=== PATIENT | male | born 1960 | race Asian ===

== ENCOUNTER 2019-06-11 18:33 | Inpatient (IN) | payer MEDICARE ==
[2019-06-11 20:42] VITALS: BP 142/78
--- NOTE | 2019-06-12 12:25 | History & Physical ---
ADMIT DATE: 06/12/2019 IDENTIFYING INFORMATION: The patient is a 58-year-old male. CHIEF COMPLAINT: The patient was admitted on a 5250 hold for grave disability and danger to others. HISTORY OF PRESENT ILLNESS: The patient was brought to the Emergency Room after a passerby called the police to report that the patient was agitated, threatening passerby with a knife so was brought for further psychiatric evaluation and followup. When we are seeing face to face, he was unable to explain his behavior or provide a logical explanation. He continues to be agitated, erratic, unpredictable. He was threatening passerby without provocation, threatening and assaultive. Client unable to ensure safety of others at this time, hold written for him at that time and that was on 06/07/2019 and the patient is currently on 5250 hold. The patient was heard yelling in the hallway, poorly articulated sentences that were difficult to understand, but loud with obscenity. He was sometimes arguing with staff who transported him to the facility and sometimes singing when he was interviewed. He is uncooperative, not providing answers to the questions and interrupting the interview whenever he asked questions. The patient provided no information about how he passed his time except to respond to the interviewer that he never had a knife and as noted in the hold and that a black lady saw him and will back him up. He did not have a name or phone number of the lady. He then spoke at length about Medicare and [employer] and how he qualified for coverage. When I talked to the patient in the presence of the adult protective caseworker, he was very erratic, labile, agitated. He was able to tell me his age, he said he is homeless. He was upset with the questions I asked that is none of my business. He reports when asked about drugs, he said he uses all kind of drugs that don?t we all do that. He was unable to tell me how long the last time he used. He agrees that he has a history of schizoaffective disorder, bipolar. He was very irritable, easily agitated. He can tell me where he is, but apparently he was able to tell the adult protective caseworker where he is. He was able to tell me the date, but he is not sure why he is here, minimizing events at his admission. He admitted to the adult protective caseworker that he has been hospitalized many times before, but for some reason he was uncooperative with me. PAST PSYCHIATRIC HISTORY: The patient reported that he was hospitalized 4 times. When I asked him, he denies prior suicide attempt. He denies that he was trying to harm himself or anyone; however, he does not seem to be a reliable historian in that aspects. SUBSTANCE ABUSE HISTORY: The patient admits to using all kind of drugs. When I asked him about what kind of drugs, he got upset. He said that is none of my business. He is not sure when was the last time he used any drugs. MEDICAL HISTORY: The patient deferred to the medical doctor. ALLERGIES: He has no known drug allergies. I have him started on Haldol as apparently he was on Haldol Decanoate according to the records from the hospital. Also, I will be initiating him on Depakote because of his labile, agitated and aggressive behavior. FAMILY AND SOCIAL HISTORY: The patient is single, never , no children. He reported that he has some college education and he used to work as a common labor. He is currently homeless, not working that is why he is here qualify Medicare and [employer]. The patient admits to substance abuse was unable to tell me if there is any family psychiatric disorder. MENTAL STATUS EXAMINATION: The patient was appropriately dressed, not very well groomed. He looks disheveled. He was alert. He was able to tell me the age, the date. He was able to tell the adult protective caseworker where he was. He has been sleeping well, eating well. He was threatening passerby with a knife, which he denies, however, it has been documented by many people. He denies any auditory or visual hallucination, but he was paranoid toward me some reason. He reports he sleeps well, eats well. He seems to have average intelligence just by able to give information, fund of knowledge and knowledge of the president of [facility]. Concentration is poor. He is unwilling to participate in a meaningful conversation and get upset very easily, so unable to concentrate. His short term memory is poor. He is minimizing events of coming here and cannot remember him holding a knife and threatening people. His insight about his illness is fair. He knows he has bipolar disorder, schizoaffective disorder. Judgment is poor with him threatening people with a knife. IMPRESSION: Schizoaffective disorder, bipolar type, polysubstance abuse. His assets, he is accepting treatment. Negative poor coping skills. INITIAL TREATMENT PLAN: The patient will be continued with Haldol. I will be adding Depakote to his medication. We will do group therapy, milieu therapy, and individual therapy. ESTIMATED LENGTH OF STAY: 3-7 days. DISCHARGE CRITERIA: Decreasing psychosis, agitation, no longer threatening. After discharge, outpatient treatment. JOB# [id number] [facility]
--- NOTE | 2019-06-12 18:34 | History & Physical ---
ADMIT DATE: HISTORY OF PRESENT ILLNESS: The patient is a 58-year-old male with long history of dementia, psychosis, degenerative joint disease, admitted to [facility] Department under Dr. Dunham's service for evaluation and treatment. Apparently, the patient has been very confused and with aggressive behavior. No fever, no chills, no nausea, no vomiting. The patient is a poor historian. PAST MEDICAL HISTORY: Significant for dementia, degenerative joint disease and psychosis. PAST SURGICAL HISTORY: No recent surgery. ALLERGIES: None. MEDICATIONS: Follow admission reconciliation. SOCIAL HISTORY: No smoking, no alcohol, no drug. FAMILY HISTORY: Noncontributory. REVIEW OF SYSTEMS: RENAL SYSTEM: No history of chronic renal disorder. CARDIOVASCULAR SYSTEM: No coronary artery disease. ENDOCRINE SYSTEM: No diabetes or thyroid problem. GASTROINTESTINAL SYSTEM: No upper or lower gastrointestinal bleed. NEUROLOGICAL SYSTEM: No seizure disorder. MUSCULOSKELETAL SYSTEM: Has degenerative joint disease. PHYSICAL EXAMINATION: GENERAL: He is awake, not coherent. VITAL SIGNS: Temperature 98.2, heart rate 99, blood pressure 115/73. HEENT: Normocephalic. Pupils reacting equal to light and accommodation. Sclerae clear. NECK: Supple. Negative for lymphadenopathy, JVD or bruit. CHEST: Bilaterally normal. No rhonchi or wheezing. HEART: S1, S2. No gallop rhythm. ABDOMEN: Soft, bowel sounds positive. EXTREMITIES: No edema. NEUROLOGICAL: He is awake, not coherent. ASSESSMENT: 1. Degenerative joint disease. 2. Dementia. 3. Psychosis. PLAN: The patient in the hospital under Dr. Dunham's service. Medical problem addressed during hospitalization is psychosis. Medical problems addressed at discharge is dementia and degenerative joint disease. The patient is medically stable for activity. Thank you, Dr. Dunham, for asking me to see your patient. The patient will follow up with primary physician upon discharge. The patient is a full code. JOB# [id number]
--- NOTE | 2019-06-13 12:50 | Internal Medicine Prog Note ---
Internal Medicine Subjective - Subjective Service Date: 06/13/19 Patient seen and examined:: with staff Patient is:: awake, verbal, confused Per staff patient has:: no adverse event Internal Medicine Objective - Physical Exam Vitals and I&O: Vital Signs Temp 98.1 F 06/12/19 20:49 Pulse 94 06/12/19 20:49 Resp 20 06/12/19 20:49 BP 110/79 06/12/19 20:49 Pulse Ox 98 06/12/19 20:49 Intake & Output 06/12/19 06/13/19 06/13/19 18:59 06:59 18:59 Intake Total 1300 240 Balance 1300 240 Intake: Oral 1300 240 Other: # Voids 1 Active Medications: Current Medications Benztropine Mesylate (Cogentin) 0.5 mg PO BID PRN PRN Reason: tremors Stop: 08/11/19 08:59 Divalproex Sodium (Depakote Er) 500 mg PO BID [facility]; Protocol Stop: 08/11/19 16:59 Last Admin: 06/13/19 08:58 Dose: Not Given Haloperidol (Haldol) 2 mg PO BID [facility]; Protocol Stop: 08/11/19 08:59 Last Admin: 06/13/19 08:57 Dose: 2 mg Lorazepam (Ativan) 0.5 mg PO Q4HR PRN; Protocol PRN Reason: Anxiety Stop: 07/11/19 21:41 Last Admin: 06/13/19 08:57 Dose: 0.5 mg Zolpidem Tartrate (Ambien) 5 mg PO HS PRN PRN Reason: Insomnia Stop: 08/10/19 21:41 Last Admin: 06/12/19 02:00 Dose: 5 mg General: demented HEENT: NC/AT, PERRLA, EOMI, anicteric sclerae, throat clear Neck: Supple, No JVD, No thyromegaly, +2 carotid pulse wo bruit, No LAD, + JVD Cardiovascular: RRR, Normal S1, Normal S2, without murmur Abdomen: non-tender, non-distended Extremities: clear Neurological: no change Internal Medicine Assmt/Plan - Assessment Assessment: 1.DJD. 2.DEMENTIA. 3.PSYCHOSIS - Plan Plan: CONTINUE ON CURRENT MEDICATION AND DIET
--- NOTE | 2019-06-13 21:32 | Progress Notes ---
DATE: 06/13/[address] Dunham IDENTIFYING DATA: A 58-year-old male brought into the ER after the patient was observed to be agitated, threatening a passerby with a knife. Today on [id number] evaluation, the patient was observed to be lying down in the bathroom sleeping, disorganized, needing a lot of redirection to maintain a simple conversation. Has no insight. MENTAL STATUS EXAMINATION: Paranoid, suspicious, disheveled, unkempt, delusional. ASSESSMENT AND PLAN: Schizophrenia with delusions and bizarre behavior, in a threat full manner engaging with other peers as evidenced by threatening peers with a knife and also bizarre behavior such as sleeping on the floor at the bathroom. We will continue with primary psychiatrist's treatment plan and goals, which includes Kendell Almeida. JOB# [id number]
--- NOTE | 2019-06-14 19:39 | Internal Medicine Prog Note ---
Internal Medicine Subjective - Subjective Service Date: 06/14/19 Patient seen and examined:: without staff (HE IS VERY CONFUSED) Patient is:: awake, verbal, confused Per staff patient has:: no adverse event Internal Medicine Objective - Physical Exam Vitals and I&O: Vital Signs Temp 97.6 F 06/14/19 14:00 Pulse 91 06/14/19 14:00 Resp 20 06/14/19 14:00 BP 122/80 06/14/19 14:00 Pulse Ox 97 06/14/19 14:00 Intake & Output 06/14/19 06/14/19 06/15/19 06:59 18:59 06:59 Intake Total 2400 Balance 2400 Intake: Oral 2400 Other: # Voids 5 # Bowel Movements 1 Active Medications: Current Medications Benztropine Mesylate (Cogentin) 0.5 mg PO BID PRN PRN Reason: tremors Stop: 08/11/19 08:59 Divalproex Sodium (Depakote Er) 500 mg PO BID [facility]; Protocol Stop: 08/11/19 16:59 Last Admin: 06/14/19 16:59 Dose: Not Given Haloperidol (Haldol) 2 mg PO BID [facility]; Protocol Stop: 08/11/19 08:59 Last Admin: 06/14/19 16:58 Dose: 2 mg Lorazepam (Ativan) 0.5 mg PO Q4HR PRN; Protocol PRN Reason: Anxiety Stop: 07/11/19 21:41 Last Admin: 06/14/19 09:11 Dose: 0.5 mg Zolpidem Tartrate (Ambien) 5 mg PO HS PRN PRN Reason: Insomnia Stop: 08/10/19 21:41 Last Admin: 06/12/19 02:00 Dose: 5 mg General: demented HEENT: NC/AT, PERRLA, EOMI, anicteric sclerae, throat clear Neck: Supple, No JVD, No thyromegaly, +2 carotid pulse wo bruit, No LAD, + JVD Cardiovascular: RRR, Normal S1, Normal S2, without murmur Abdomen: non-tender, non-distended Extremities: clear Neurological: no change Internal Medicine Assmt/Plan - Assessment Assessment: 1.DJD. 2.DEMENTIA. 3.PSYCHOSIS - Plan Plan: CONTINUE ON CURRENT MEDICATION AND DIET
--- NOTE | 2019-06-15 09:48 | Progress Notes ---
DATE: 06/14/[address] Dunham. SUBJECTIVE: Today on [id number] evaluation, the patient presents irritable, still disorganized and easily agitated. MENTAL STATUS EXAMINATION: Suspicious, disheveled, unkempt. ASSESSMENT AND PLAN: Schizophrenic, delusional with bizarre behavior such as sleeping, lying down on the floor ____, disorganized thought process. We will continue with recent adjustments of the Depakote and Haldol. JOB# [id number]
--- NOTE | 2019-06-15 15:20 | Internal Medicine Prog Note ---
Internal Medicine Subjective - Subjective Service Date: 06/15/19 Patient seen and examined:: without staff (HE IS VERY CONFUSED) Patient is:: awake, verbal, confused Per staff patient has:: no adverse event Internal Medicine Objective - Physical Exam Vitals and I&O: Vital Signs Temp 97.6 F 06/15/19 14:00 Pulse 97 06/15/19 14:00 Resp 20 06/15/19 14:00 BP 117/70 06/15/19 14:00 Pulse Ox 98 06/15/19 14:00 Intake & Output 06/14/19 06/15/19 06/15/19 18:59 06:59 18:59 Intake Total 2400 120 Balance 2400 120 Intake: Oral 2400 120 Other: # Voids 5 3 # Bowel Movements 1 Active Medications: Current Medications Benztropine Mesylate (Cogentin) 0.5 mg PO BID PRN PRN Reason: tremors Stop: 08/11/19 08:59 Divalproex Sodium (Depakote Er) 500 mg PO BID [facility]; Protocol Stop: 08/11/19 16:59 Last Admin: 06/15/19 08:18 Dose: Not Given Haloperidol (Haldol) 5 mg PO BID [facility]; Protocol Stop: 08/14/19 16:59 Lorazepam (Ativan) 0.5 mg PO Q4HR PRN; Protocol PRN Reason: Anxiety Stop: 07/11/19 21:41 Last Admin: 06/14/19 20:48 Dose: 0.5 mg Zolpidem Tartrate (Ambien) 5 mg PO HS PRN PRN Reason: Insomnia Stop: 08/10/19 21:41 Last Admin: 06/12/19 02:00 Dose: 5 mg General: demented HEENT: NC/AT, PERRLA, EOMI, anicteric sclerae, throat clear Neck: Supple, No JVD, No thyromegaly, +2 carotid pulse wo bruit, No LAD, + JVD Cardiovascular: RRR, Normal S1, Normal S2, without murmur Abdomen: non-tender, non-distended Extremities: clear Neurological: no change Internal Medicine Assmt/Plan - Assessment Assessment: 1.DJD. 2.DEMENTIA. 3.PSYCHOSIS - Plan Plan: CONTINUE ON CURRENT MEDICATION AND DIET
--- NOTE | 2019-06-15 20:35 | Progress Notes ---
DATE: 06/15/2019 Case was discussed with staff of the patient, reviewed records. The patient continues to be suspicious, paranoid, looking disheveled, unable to make safe plan for self-care with history of schizophrenia. Continues to have poor insight. I will be increasing his Haldol further to 5 mg twice a day as I am giving him the Abilify. No side effects with the medication, no sedation, no nausea, no extrapyramidal symptoms. Also, I will be checking his Depakote level. He reports he lives in some sort of an independent living environment. Then, I will try to work also on discharge plan and will continue outpatient group therapy, milieu therapy, adjust medication as needed. JOB# [id number]
--- NOTE | 2019-06-16 15:02 | Progress Notes ---
DATE: 06/16/2019 Case was discussed with staff of the patient, reviewed records. The patient has been refusing lab work, but taking to his medication. Continues to have poor insight, unpredictable, impulsive. I tried to check his Depakote level, which he refused. He tolerated the increase in Haldol yesterday with no side effects, no sedation, no nausea, and no extrapyramidal symptoms. Also, working on discharge plan for this patient and we will continue to work with the patient in group therapy, milieu therapy, adjust medication as needed. JOB# [id number]
--- NOTE | 2019-06-16 20:00 | Internal Medicine Prog Note ---
Internal Medicine Subjective - Subjective Service Date: 06/16/19 Patient seen and examined:: without staff (HE FEELS WELL) Patient is:: awake, verbal, confused Per staff patient has:: no adverse event Internal Medicine Objective - Physical Exam Vitals and I&O: Vital Signs Temp 97.4 F 06/16/19 14:00 Pulse 94 06/16/19 14:00 Resp 18 06/16/19 14:00 BP 120/78 06/16/19 14:00 Pulse Ox 96 06/16/19 14:00 Intake & Output 06/16/19 06/16/19 06/17/19 06:59 18:59 06:59 Intake Total 240 2200 Balance 240 2200 Intake: Oral 240 2200 Other: # Voids 2 5 # Bowel Movements 1 Active Medications: Current Medications Benztropine Mesylate (Cogentin) 0.5 mg PO BID PRN PRN Reason: tremors Stop: 08/11/19 08:59 Divalproex Sodium (Depakote Er) 500 mg PO BID [facility]; Protocol Stop: 08/11/19 16:59 Last Admin: 06/16/19 17:16 Dose: 500 mg Haloperidol (Haldol) 5 mg PO BID [facility]; Protocol Stop: 08/14/19 16:59 Last Admin: 06/16/19 17:16 Dose: 5 mg Lorazepam (Ativan) 0.5 mg PO Q4HR PRN; Protocol PRN Reason: Anxiety Stop: 07/11/19 21:41 Last Admin: 06/16/19 10:00 Dose: 0.5 mg Zolpidem Tartrate (Ambien) 5 mg PO HS PRN PRN Reason: Insomnia Stop: 08/10/19 21:41 Last Admin: 06/12/19 02:00 Dose: 5 mg General: demented HEENT: NC/AT, PERRLA, EOMI, anicteric sclerae, throat clear Neck: Supple, No JVD, No thyromegaly, +2 carotid pulse wo bruit, No LAD, + JVD Cardiovascular: RRR, Normal S1, Normal S2, without murmur Abdomen: non-tender, non-distended Extremities: clear Neurological: no change Internal Medicine Assmt/Plan - Assessment Assessment: 1.DJD. 2.DEMENTIA. 3.PSYCHOSIS - Plan Plan: CONTINUE ON CURRENT MEDICATION AND DIET Nutritional Asmnt/Malnutr-PDOC - Dietary Evaluation Malnutrition Findings (Please click <Entered> for more info): Nutritional Asmnt/Malnutrition Start: 06/16/19 13: 57 Text: Status: Complete Freq: Protocol: Document 06/16/19 13:57 MICHAEL (Rec: 06/16/19 14:00 MICHAEL [id number]) Nutritional Asmnt/Malnutrition Patient General Information Nutritional Screening Low Risk Diagnosis Psychosis Pertinent Medical Hx/Surgical Hx Dementia, DJD, Psychosis Subjective Information Pt is a 58-year-old male admitted on 06/11 d/t public agitation, threatening passerby with a knife. Pt is reportedly homeless, on a 5250 hold. Pt is eating 100% of meals since admit date Per Meal/Nutrition Activity Record . Dietary is currently providing an estimated 2580 kcals and 100 gm Pro to meet 100+% kcal and 100+% Pro needs . Anthropometrics HT: 52 WT: 120 LB (54.55 kg) BMI: 21.95 (Normal) GI/ Skin Integrity GI: WNL, flat, Soft, non- tender BM: 06/16 x1 I/O: 1340/Not Noted Skin: Dryness Kenton: 22 Diet Order: Regular Estimated Energy Needs: ( Geriatric, CBW) 4681-8768 kcals (25-30 kcals/ kg) 55-65g Pro (1.0-1.2 g/kg) 7516-1508 ml (25-30 ml/kg) Current Diet Order/ Nutrition Support Regular Pertinent Medications no pertinent medications Pertinent Labs No Labs drawn/Reported Nutritional Hx/Data Height 1.57 m Height (Calculated Centimeters) 157.5 Current Weight (lbs) 54.431 kg Weight (Calculated Kilograms) 54.4 Weight (Calculated Grams) 37314.1 Roland Body Weight 118 LB (53.64 kg) % Roland Body Weight 102 Body Mass Index (BMI) 21.9 Weight Status Approriate GI Symptoms GI Symptoms None Last BM 06/16 x1 Skin Integrity/Comment: Skin: Dryness Kenton: 22 Current %PO Good (75-100%) Estimated Nutritional Goals BEE in Kcals: Using Current wt Calories/Kcals/Kg 25-30 Kcals Calculated 1393-1833 Protein: Using Current wt Protein g/k.0-1.2 Protein Calculated 55-65 Fluid: ml 1625-7532 ml (25-30 ml/kg) Nutritional Problem No current Nutrition Prob Problem No nutrition diagnosis at this time. Etiology N/A Signs/Symptoms: N/A Malnutrition Related to Morbid Obesity Malnutrition related to morbid obesity No Intervention/Recommendation Comments Continue with Regular diet as tolerated. Expected Outcomes/Goals Expected Outcomes/Goals 1. PO intake to continue to meet >75% of nutritional needs . 2. Monitor PO intake, wt, nutrition related labs, and skin integrity. 3. F/U as low risk in 7-10 days, 06/23-06/26
--- NOTE | 2019-06-17 13:30 | Progress Notes ---
DATE: 06/17/2019 Case was discussed with staff of the patient, reviewed records. The patient continues to be easily agitated, unpredictable, impulsive, needing redirection. He continues to have poor insight, unable to make safe plan for self-care, get easily upset. There is no lab work available records. I have him on Depakote. I would like to check level, but he is refusing lab work, working on placement for this patient. No side effects of the medication, no sedation, no nausea, no extrapyramidal symptoms. We will continue the patient in group therapy, milieu therapy, adjust medication as needed. JOB# [id number]
--- NOTE | 2019-06-17 19:17 | Internal Medicine Prog Note ---
Internal Medicine Subjective - Subjective Service Date: 06/17/19 Patient seen and examined:: without staff (HE FEELS WELL) Patient is:: awake, verbal, confused Per staff patient has:: no adverse event Internal Medicine Objective - Physical Exam Vitals and I&O: Vital Signs Temp 96.8 F 06/17/19 06:20 Pulse 96 06/17/19 06:20 Resp 20 06/17/19 06:20 BP 112/79 06/17/19 06:20 Pulse Ox 99 06/17/19 06:20 Intake & Output 06/17/19 06/17/19 06/18/19 06:59 18:59 06:59 Intake Total 300 2400 Balance 300 2400 Intake: Oral 300 2400 Other: # Voids 2 4 # Bowel Movements 1 1 Active Medications: Current Medications Benztropine Mesylate (Cogentin) 0.5 mg PO BID PRN PRN Reason: tremors Stop: 08/11/19 08:59 Divalproex Sodium (Depakote Er) 500 mg PO BID [facility]; Protocol Stop: 08/11/19 16:59 Last Admin: 06/17/19 17:30 Dose: Not Given Haloperidol (Haldol) 5 mg PO BID [facility]; Protocol Stop: 08/14/19 16:59 Last Admin: 06/17/19 17:29 Dose: Not Given Lorazepam (Ativan) 0.5 mg PO Q4HR PRN; Protocol PRN Reason: Anxiety Stop: 07/11/19 21:41 Last Admin: 06/17/19 17:34 Dose: 0.5 mg Zolpidem Tartrate (Ambien) 5 mg PO HS PRN PRN Reason: Insomnia Stop: 08/10/19 21:41 Last Admin: 06/12/19 02:00 Dose: 5 mg General: demented HEENT: NC/AT, PERRLA, EOMI, anicteric sclerae, throat clear Neck: Supple, No JVD, No thyromegaly, +2 carotid pulse wo bruit, No LAD, + JVD Cardiovascular: RRR, Normal S1, Normal S2, without murmur Abdomen: non-tender, non-distended Extremities: clear Neurological: no change Internal Medicine Assmt/Plan - Assessment Assessment: 1.DJD. 2.DEMENTIA. 3.PSYCHOSIS - Plan Plan: CONTINUE ON CURRENT MEDICATION AND DIET Nutritional Asmnt/Malnutr-PDOC - Dietary Evaluation Malnutrition Findings (Please click <Entered> for more info): Nutritional Asmnt/Malnutrition Start: 06/16/19 13: 57 Text: Status: Complete Freq: Protocol: Document 06/16/19 13:57 MICHAEL (Rec: 06/16/19 14:00 MICHAEL [email or web address]) Nutritional Asmnt/Malnutrition Patient General Information Nutritional Screening Low Risk Diagnosis Psychosis Pertinent Medical Hx/Surgical Hx Dementia, DJD, Psychosis Subjective Information Pt is a 58-year-old male admitted on 06/11 d/t public agitation, threatening passerby with a knife. Pt is reportedly homeless, on a 5250 hold. Pt is eating 100% of meals since admit date Per Meal/Nutrition Activity Record . Dietary is currently providing an estimated 2580 kcals and 100 gm Pro to meet 100+% kcal and 100+% Pro needs . Anthropometrics HT: 52 WT: 120 LB (54.55 kg) BMI: 21.95 (Normal) GI/ Skin Integrity GI: WNL, flat, Soft, non- tender BM: 06/16 x1 I/O: 1340/Not Noted Skin: Dryness [place]: 22 Diet Order: Regular Estimated Energy Needs: ( Geriatric, CBW) 9529-0632 kcals (25-30 kcals/ kg) 55-65g Pro (1.0-1.2 g/kg) 5190-4957 ml (25-30 ml/kg) Current Diet Order/ Nutrition Support Regular Pertinent Medications no pertinent medications Pertinent Labs No Labs drawn/Reported Nutritional Hx/Data Height 1.57 m Height (Calculated Centimeters) 157.5 Current Weight (lbs) 54.431 kg Weight (Calculated Kilograms) 54.4 Weight (Calculated Grams) 10760.1 [place] Body Weight 118 LB (53.64 kg) % [place] Body Weight 102 Body Mass Index (BMI) 21.9 Weight Status Approriate GI Symptoms GI Symptoms None Last BM 06/16 x1 Skin Integrity/Comment: Skin: Dryness [place]: 22 Current %PO Good (75-100%) Estimated Nutritional Goals BEE in Kcals: Using Current wt Calories/Kcals/Kg 25-30 Kcals Calculated 0354-7501 Protein: Using Current wt Protein g/k.0-1.2 Protein Calculated 55-65 Fluid: ml 8924-6491 ml (25-30 ml/kg) Nutritional Problem No current Nutrition Prob Problem No nutrition diagnosis at this time. Etiology N/A Signs/Symptoms: N/A Malnutrition Related to Morbid Obesity Malnutrition related to morbid obesity No Intervention/Recommendation Comments Continue with Regular diet as tolerated. Expected Outcomes/Goals Expected Outcomes/Goals 1. PO intake to continue to meet >75% of nutritional needs . 2. Monitor PO intake, wt, nutrition related labs, and skin integrity. 3. F/U as low risk in 7-10 days, 06/23-06/26
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
--- NOTE | 2019-06-21 02:48 | Progress Notes ---
DATE: 06/20/2019 Dr. Nix covering for Dr. Dunham. Chart reviewed and the patient interviewed. Also discussed the patient's condition with the staff and reviewed records and labs. The patient still has bizarre behavior and last night, the patient was sleeping in the bathroom floor and does not want to leave to go to his bed. The patient also at times gets out of his room naked, stays on or sleeps on the floor in the hallway naked. He also still easily irritable and he still has unpredictable behavior with severe mood swings. The patient also actively responding and he is talking to himself and is severely agitated with severe mood swings. ASSESSMENT: The patient is still severely agitated and is still in irritable mood. TREATMENT PLAN: Continue to monitor behavior and his condition closely. Also, we will repeat Depakote blood level and we will continue to follow up his condition closely. JOB# [id number]
--- NOTE | 2019-06-21 10:40 | Progress Notes ---
DATE: 06/21/2019 SUBJECTIVE: Chart was reviewed and the patient interviewed. Also discussed the patient's condition with the staff and reviewed records and labs. The patient is still easily agitated and easily irritable. The patient also is still suspicious and is still severely paranoid. The patient also is restless and has difficulty following staff directions and still has difficulty complying with staff orders because of his paranoia and his impulsivity. Also, the patient is still demanding. Otherwise, the patient is compliant with taking his medications and the patient has no side effects of medications. ASSESSMENT: The patient is still agitated and in irritable and angry mood. TREATMENT PLAN: Continue to monitor behavior and condition closely and continue to work on behavioral modification. [facility]# [id number]
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
--- NOTE | 2019-06-23 01:23 | Progress Notes ---
DATE: 06/22/2019 Case was discussed with staff of the patient, reviewed records. The patient has been selective about his medication. He is easily agitated, irritable, restless. Actually he is going to [place]. Continues to be impulsive, unpredictable. No side effects with the medication, no sedation, no nausea and working on discharge plan. He sometimes takes his medications and sometimes he does not. He is on Haldol 5 mg twice a day. I will try to initiate Haldol Decanoate on him because of his medication refusal and no side effects of the medication, no sedation, no nausea, no extrapyramidal symptoms. I will continue the patient in group therapy, milieu therapy, adjust medication as tolerated. JOB# [id number]
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
--- NOTE | 2019-06-23 23:32 | Progress Notes ---
DATE: 06/23/2019 Case was discussed with staff of the patient, reviewed records. The patient refused Haldol Decanoate; however, today he tells me he is willing to take the Haldol oral tablets. He is sleeping better, eating better. The staff reports he has been managed on the unit. No acting out behavior, does not need any emergency medication, not acting anyway threatening. He is sleeping well, eating well. Discussed side effects of Haldol; however, he refused to take it. If he continues to do well, I will plan to discharge him tomorrow. Meanwhile, we will continue outpatient group therapy, milieu therapy, and adjust the medications as needed. JOB# [id number]
--- NOTE | 2019-06-24 14:06 | Progress Notes ---
DATE: 06/24/2019 The patient continues to refuse medication. He is a little bit hostile; however, in general, he is responding better to redirection. He is sleeping better, eating better. The patient did have episode where he is compliant with the medication according to the notes from Dr. Nix. So hopefully he will be able to take him, otherwise may continue diuresing him if he is acting out in anyway dangerous and we will continue to work with the patient in group therapy, milieu therapy, and adjust the medication as needed. JOB# [id number]
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
--- NOTE | 2019-06-26 05:29 | Progress Notes ---
DATE: 06/25/2019 Case was discussed with staff of the patient, reviewed records and lab work. The patient finally agreed to take his Haldol injection. The patient is much more mellow today. Sleeping better, eating better. So if he continues to do well, I do have plan to discharge him tomorrow. He is currently denying any intent to harm himself or anyone, but he tends to be aggressive in general and we do have a placement for him, so hopefully tomorrow if he continues to do well, I do have plan to discharge him. Meanwhile, we will continue outpatient group therapy, milieu therapy, and adjust medications as needed. JOB# [id number]
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
== END 2019-06-26 16:42 | DRG 885 ==
LOC: EDSEX → GERO 19:45
PROVIDERS: ADMIT Psychiatry & Neurology Psychiatry; ATTEND Psychiatry & Neurology Psychiatry
DX: F25.0 Schizoaffective disorder, bipolar type (principal); F19.10 Other psychoactive substance abuse, uncomplicated; F03.90 Unspecified dementia, unspecified severity, without behavioral disturbance, psychotic disturbance, mood disturbance, and anxiety; F29 Unspecified psychosis not due to a substance or known physiological condition; M19.90 Unspecified osteoarthritis, unspecified site
CPT/HCPCS: 83036-90; 90899; G0410; J1631; Z7610